=== PATIENT | female | born 1950 | race Caucasian/White ===

== ENCOUNTER 2018-04-25 23:57 | Inpatient (IN) | payer MEDICARE, BC ==
[~2018-04-25] VITALS: Ht 165.1 cm; Wt 77.1 kg
--- NOTE | 2018-04-26 00:01 | NUR ---
DR ALEJO LAY MD AT BEDSIDE FOR MSE/MED CLEARANCE.
[2018-04-26] MEDS ORDERED: LIDOCAINE 5% TD (00:15)
[2018-04-26] MEDS ORDERED: TRAZ-182 PO (00:15)
[2018-04-26] MEDS ORDERED: OMEP20CA10 PO (00:15)
[2018-04-26] MEDS ORDERED: GABA-536 PO (00:15)
[2018-04-26] MEDS ORDERED: ROPI0.5T PO (00:15)
[2018-04-26] MEDS ORDERED: CARV3.122 PO (00:15)
[2018-04-26] MEDS ORDERED: DESV50TA PO (00:15)
[2018-04-26] MEDS ORDERED: RIFA550T PO (00:15)
[2018-04-26] MEDS ORDERED: SITA100T PO (00:15)
[2018-04-26] MEDS ORDERED: INSU100V10 SQ (00:15)
[2018-04-26] MEDS ORDERED: ASPI-605 PO (00:15)
--- NOTE | 2018-04-26 00:26 | NUR ---
MEDICALLY CLEARED BY DR DHILLON
--- NOTE | 2018-04-26 00:30 | NUR ---
TRANSFERED TO [address] [place] [address] OVERFLOW VIA [employer]
--- NOTE | 2018-04-26 00:35 | NUR ---
NEW ADMIT FROM ER, ADMITTED ON 5150 HOLD FOR DEPRESSION. PATIENT IS AAOX4 DENIES PAIN OR SUICIDAL THOUGHTS ON ADMISSION. SAFETY MEASURES INITIATED, 1:1 SITTER AT BEDSIDE WITH CLOSE MONITORING OF PATIENT. WILL CONTINUE TO MONITOR PATIENT
[2018-04-26] MEDS ORDERED: ACETAMINOPHEN 325 MG TABLET PO PRN (01:00)
[2018-04-26] MEDS ORDERED: MAGNESIUM HYDROXIDE 30 ML LIQUID UDC PO PRN (01:00)
[2018-04-26] MEDS ORDERED: ZOLPIDEM 5 MG TABLET PO PRN (01:00)
[2018-04-26] MEDS ORDERED: MAG HYDROX/AL HYDROX/SIMETH 30 ML LIQUID UDC PO PRN (01:00)
[2018-04-26 02:59] VITALS: BP 126/61
[2018-04-26] MEDS: TRAMADOL HCL 50 MG TABLET PO SCH ×4 (06:27→22:04)
[2018-04-26] MEDS: BLOOD SUGAR DIAGNOSTIC 1 EACH STRIP VI SCH ×5 (06:31→21:12)
--- NOTE | 2018-04-26 06:40 | NUR ---
PATIENT SLEPT ON AND OFF THROUGHOUT THE SHIFT, SLEPT 4.5 HOURS ON THIS SHIFT. DENIES ANY SUICIDAL THOUGHTS PAIN MEDS GIVEN ORDERED, NO ACUTE DISTRESS AT PRESENT. SAFETY MAINTAINED AT ALL TIMES. SITTER REMAINS AT BEDSIDE WITH CLOSE MONITORING OF PATIENT
--- NOTE | 2018-04-26 10:28 | NUR ---
PATIENT SEEN AND EXAMINED BY DR PEREIRA WITH NEW ORDERS AND NOTED.PATIENT SIGNED THE CONSCENT FOR HER PSYCHOTROPHIC MEDICATIONS AND FAXED TO THE PHARMACY.
[2018-04-26] MEDS ORDERED: DEXTROSE 50% 50 ML DISP.SYRIN IV PRN (11:30)
[2018-04-26 11:45] VITALS: BP 154/84
--- NOTE | 2018-04-26 11:58 | NUR ---
BLOOD SUGAR WAS ALREADY CHECKED LESS THAN AN HOUR AGO AWAITING FOR THE PHARMACY VERIFY SLIDING SCALE.
--- NOTE | 2018-04-26 12:00 | NUR ---
PATIENT C/O NAUSEA MEDICATED WITH ZOFRAN ORDERED AND WILL OBSERVE
[2018-04-26] MEDS: LINAGLIPTIN 5 MG TABLET PO SCH (12:08)
[2018-04-26] MEDS: DULOXETINE 30 MG CAPSULE.DR PO SCH (12:08)
[2018-04-26] MEDS: ONDANSETRON HCL 4 MG TABLET PO PRN ×2 (12:08→21:12)
[2018-04-26] MEDS: INSULIN REGULAR, HUMAN 300 UNIT/3 ML VIAL SQ PRN ×3 (12:12→22:05)
[2018-04-26] MEDS: LORAZEPAM 0.5 MG TABLET PO PRN (15:43)
--- NOTE | 2018-04-26 15:43 | NUR ---
REPORTED BY THE SITTER THAT PATIENT HAD SOME EPISODE OF CRYING AND NOW SHE ATTEMPTED TO REACH HER DAUGHTER BUT WAS UNABLE STATED THAT HER DAUGHTER HAS HER JEWELRIES AND SHE WANTS THEM BUT I CALLED HER BUT NO ANSWER.SO PATIENT REASSURED THAT WHEN HER DAUGHTER RETURNS CALL THEN WE WILL INFORM HER AND SHE WAS MEDICATED WITH ATIVAN TO CALM HER DOWN.
[2018-04-26 16:00] VITALS: BP 149/81
[2018-04-26] MEDS: RIFAXIMIN 550 MG TABLET PO SCH (16:55)
[2018-04-26] MEDS: CARVEDILOL 3.125 MG TABLET PO SCH (17:44)
--- NOTE | 2018-04-26 18:50 | NUR ---
PATIENT TRANSFERED TO MENTAL HEALTH UNIT ROOM WITH ALL HER PERSONAL BELONGINGS TO ROOM 138 REPORT GIVEN TO FAITH
[2018-04-26 19:30] VITALS: BP 158/79
[2018-04-26] MEDS: TRAZODONE 50 MG TABLET PO SCH ×2 (21:00→22:04)
--- NOTE | 2018-04-26 22:00 | NUR ---
received to care, isolative, but pleasant upon approach. refused all medications. tearful at times. denies si, or desire to harm self. c/o nausea. PRN zofran was given for nausea, with good results. accucheck was 254, but insulin coverage was held, due to her refusing to eat. c/o lower back pain, but refused tramadol, stating it "doesn't help" as of 2200, she appears to be asleep. no distress noted. will continue to monitor closely.
[2018-04-27] MEDS: TRAMADOL HCL 50 MG TABLET PO SCH ×3 (06:00→21:22)
[2018-04-27] MEDS: PANTOPRAZOLE SODIUM 40 MG TABLET.DR PO SCH (06:04)
[2018-04-27] MEDS: BLOOD SUGAR DIAGNOSTIC 1 EACH STRIP VI SCH ×4 (06:05→21:37)
[2018-04-27 07:30] VITALS: BP 133/67
[2018-04-27] MEDS: CARVEDILOL 3.125 MG TABLET PO SCH ×2 (08:13→18:00)
[2018-04-27] MEDS: DULOXETINE 30 MG CAPSULE.DR PO SCH (08:14)
[2018-04-27] MEDS: ASPIRIN EC 81 MG TABLET.DR PO SCH (08:14)
[2018-04-27] MEDS: INSULIN REGULAR, HUMAN 300 UNIT/3 ML VIAL SQ PRN ×4 (08:19→21:41)
[2018-04-27] MEDS: ONDANSETRON HCL 4 MG TABLET PO PRN ×2 (08:35→12:55)
[2018-04-27] MEDS ORDERED: Medication Not On Formulary EA (Sitagliptin Phosphate (Januvia) 100 MG) PO SCH (09:00)
[2018-04-27] MEDS ORDERED: Medication Not On Formulary EA (Omeprazole 20 MG) PO SCH (09:00)
[2018-04-27] MEDS: LINAGLIPTIN 5 MG TABLET PO SCH (10:03)
[2018-04-27] MEDS: RIFAXIMIN 550 MG TABLET PO SCH ×2 (10:03→18:01)
[2018-04-27] MEDS: GABAPENTIN 300 MG CAPSULE PO SCH (13:21)
[2018-04-27] MEDS ORDERED: TRAZODONE 50 MG TABLET PO PRN (14:00)
[2018-04-27 15:00] VITALS: BP 140/71
[2018-04-27 19:51] VITALS: BP 146/80
[2018-04-27] MEDS ORDERED: ropiniROLE 0.5 MG TABLET PO SCH (21:00)
[2018-04-27] MEDS ORDERED: GABAPENTIN 300 MG CAPSULE PO SCH (21:00)
[2018-04-27] MEDS: LORAZEPAM 0.5 MG TABLET PO PRN (21:22)
--- NOTE | 2018-04-27 22:00 | NUR ---
received to care, sitting in the hallway, minimally interactive with peers, pleasant upon approach. compliant with medications and staff direction. as of 2199, she remains awake, reading a book. no distress noted. will continue to monitor closely.
--- NOTE | 2018-04-27 23:59 | NUR ---
pt remains awake. PRN trazadone, was given at this time.
[2018-04-28] MEDS: LORAZEPAM 0.5 MG TABLET PO PRN (03:15)
--- NOTE | 2018-04-28 03:15 | NUR ---
PRN ativan, given, for anxiety.
--- NOTE | 2018-04-28 04:00 | NUR ---
appears to be asleep.
[2018-04-28] MEDS: TRAMADOL HCL 50 MG TABLET PO SCH ×2 (06:00→13:40)
--- NOTE | 2018-04-28 06:00 | NUR ---
slept 5.0 hours.
[2018-04-28] MEDS: PANTOPRAZOLE SODIUM 40 MG TABLET.DR PO SCH (06:18)
[2018-04-28] MEDS: BLOOD SUGAR DIAGNOSTIC 1 EACH STRIP VI SCH ×2 (06:22→12:34)
[2018-04-28 08:07] VITALS: BP 159/76
[2018-04-28] MEDS: INSULIN REGULAR, HUMAN 300 UNIT/3 ML VIAL SQ PRN ×2 (08:50→12:41)
[2018-04-28] MEDS: ASPIRIN EC 81 MG TABLET.DR PO SCH (08:51)
[2018-04-28] MEDS: DULOXETINE 30 MG CAPSULE.DR PO SCH (08:51)
[2018-04-28 08:52] VITALS: BP 159/52
[2018-04-28] MEDS: RIFAXIMIN 550 MG TABLET PO SCH (08:52)
[2018-04-28] MEDS: GABAPENTIN 300 MG CAPSULE PO SCH (08:52)
[2018-04-28] MEDS: CARVEDILOL 3.125 MG TABLET PO SCH (08:52)
[2018-04-28] MEDS: LINAGLIPTIN 5 MG TABLET PO SCH (10:04)
[2018-04-28] MEDS: ONDANSETRON HCL 4 MG TABLET PO PRN (13:39)
--- NOTE | 2018-04-28 14:40 | NUR ---
Firearms Report: Applications Analyst completed and submitted [employer] Firearms Report on 04/28/18 for 5150 Danger to Self Certification.
--- NOTE | 2018-04-28 15:14 | NUR ---
AMA Discharge Note: Patient is leaving AMA. Patient will return home with her [[address] [place] [id number]; [phone]]. Patient has arranged her own transportation and will go home via Uber. Spoke with patient's , Victorino Peters ([phone]) who is aware that patient is choosing to leave the hospital AMA today. Patient is alert and oriented x4 and denies SI/HI. Patient reports she will continue to follow-up with her Primary Care Physician, Dr. Gala Ramirez [[id number] [address]; [phone]].
--- NOTE | 2018-04-28 15:30 | NUR ---
Gps/[employer] Manager- Dr Driver was in today and spoked to patient. Patient wants to leave today, going home AMA. Patient well understood that she is leaving against Medical advised . All belongings given back to patient. Discharged in good spirit, adequate relief from lower back pain. Patient's aware of patient leaving against Medical advised.Discharged via uber taxi.
== END 2018-04-28 16:00 | disposition left against medical advice (07) | DRG 885 ==
LOC: ER 04-26 00:05 → GPSOV 04-26 00:23 → GPS 04-26 18:52
PROVIDERS: ADMIT Psychiatry & Neurology Psychiatry; ATTEND Internal Medicine
DX: F33.2 Major depressive disorder, recurrent severe without psychotic features (principal); E11.65 Type 2 diabetes mellitus with hyperglycemia; F23 Brief psychotic disorder; F41.9 Anxiety disorder, unspecified; I10 Essential (primary) hypertension; I25.10 Atherosclerotic heart disease of native coronary artery without angina pectoris; G89.29 Other chronic pain; K21.9 Gastro-esophageal reflux disease without esophagitis; Z73.6 Limitation of activities due to disability; K74.60 Unspecified cirrhosis of liver; Y90.9 Presence of alcohol in blood, level not specified; F10.10 Alcohol abuse, uncomplicated
CPT/HCPCS: 36415; 71045; A4663; J1815; Q0162